=== PATIENT | female | born 1950 | race Caucasian/White ===

== ENCOUNTER 2019-02-01 12:37 | Emergency (ER) | payer BC, OTHER ==
--- NOTE | 2019-02-01 12:50 | PDOC ---
History of Present Illness - General Chief Complaint: Pain Stated Complaint: TONGUE, MOUTH AREA "TENDER" Time Seen by Provider: 02/01/19 12:46 History Source: Patient Exam Limitations: No Limitations - History of Present Illness Initial Comments: 02/01/19 12:48 68 y/o female with two complaints, tongue sore for a few days, using OTC medications without relief. No fever or chills. Also has a pimple in groin area that wants to be looked at. Slightly painful. Has had for a long time. Has appointment with Clinical Reviewer next week. 02/01/19 13:14 Past History - Past Medical History Allergies/Adverse Reactions: Allergies Allergy/AdvReac Type Severity Reaction Status Date / Time escitalopram [From Lexapro] Allergy Verified 02/01/19 12:39 Penicillins Allergy Verified 02/01/19 12:39 Home Medications: Ambulatory Orders NK [No Known Home Medication] 02/01/19 COPD: No Psychiatric Problems: Yes (depression, anxiety, bipoolar, ocd) - Suicide/Smoking/Psychosocial Hx Smoking History: Never smoked Information on smoking cessation initiated: No Hx Alcohol Use: No Review of Systems - Review of Systems Able to Perform ROS?: Yes Is the patient limited Kinyarwanda proficient: No Constitutional: No: Chills, Fever HEENTM: Yes: Mouth Pain. No: Throat Pain, Throat Swelling Respiratory: No: Cough, Shortness of Breath ABD/GI: No: Nausea, Vomiting Integumentary: No: Bruising All Other Systems: Reviewed and Negative *Physical Exam - Vital Signs Last Vital Signs Temp Pulse Resp BP Pulse Ox 97.8 F 87 18 138/65 99 02/01/19 12:37 02/01/19 12:37 02/01/19 12:37 02/01/19 12:37 02/01/19 12:37 - Physical Exam General Appearance: Yes: Nourished, Appropriately Dressed. No: Apparent Distress HEENT: positive: EOMI, HESHAM, Normal ENT Inspection, Normal Voice, Symmetrical, Pharynx Normal. negative: Tonsillar Erythema, Nasal Congestion (no swelling or redness or tongue noted, no aphthous ulcers noted), Rhinorrhea, Sinus Tenderness Neck: positive: Trachea midline, Normal Thyroid, Supple. negative: Tender, Rigid, Carotid bruit Respiratory/Chest: positive: Lungs Clear, Normal Breath Sounds. negative: Chest Tender Cardiovascular: positive: Regular Rhythm, Regular Rate, S1, S2. negative: Edema Vascular Pulses: Femoral (R): 4+, Femoral (L): 4+, Carotid (R): 4+, Carotid (L) : 4+, Dorsalis-Pedis (R): 4+, Doralis-Pedis (L): 4+ Gastrointestinal/Abdominal: positive: Normal Bowel Sounds, Flat, Soft. negative : Tender Lymphatic: negative: Adenopathy, Tenderness, Other Extremity: positive: Normal Capillary Refill, Normal Inspection, Normal Range of Motion Integumentary: positive: Normal Color, Dry, Warm, Other (small raised lesion to left groin area, no redness, fluctuance, or tenderness noted) Neurologic: positive: cylinder steamer II-XII NML intact, Fully Oriented, Alert, Normal Mood/ Affect, Normal Response, Motor Strength 5/ ED Treatment Course - ADDITIONAL ORDERS Additional order review: 02/01/19 13:12 Patient will need follow up with Clinical Reviewer for skin tag removal Salt water gargles for tongue pain If worsen return to ER *DC/Admit/Observation/Transfer Diagnosis at time of Disposition: Tongue pain, Skin tag - Discharge Dispostion Disposition: HOME Condition at time of disposition: Stable Decision to Admit order: No - Referrals - Patient Instructions Printed Discharge Instructions: LENY Lizarraga for Mouth Pain Additional Instructions: Fluids, rest Tylenol Follow up with Clinical Reviewer If worsen return to ER - Post Discharge Activity
[2019-02-01 12:55] VITALS: BP 138/65; PULSE 87; TEMP 97.8; BMI 30.2
== END 2019-02-01 13:25 | disposition home or self-care (01) ==
LOC: FER 12:37
DX: K14.6 Glossodynia (principal); D23.9 Other benign neoplasm of skin, unspecified
CPT/HCPCS: 99283-25

== ENCOUNTER 2020-04-09 09:43 | Emergency (ER) | payer BC, OTHER ==
--- OUTSIDE RECORDS SUMMARY | 2020-04-09 10:05 | XMS ---
:1950 [facility] Providers Name Role Phone KENDAL MURRELL MD Unavailable Unavailable Connie MURRELL MD Unavailable Unavailable Connie MURRELL MD Unavailable Unavailable QUIROZ Unavailable Unavailable POMPA-ARIA Unavailable Unavailable HHCCC Unavailable Unavailable MD RUFINA Unavailable Unavailable MD SKIP Unavailable Unavailable NICHOLAS LAWRENCE Unavailable Unavailable CANONICO Unavailable Unavailable MD MORAIMA Unavailable Unavailable Re-disclosure Warning The records that you are about to access may contain information from federally- assisted alcohol or drug abuse programs. If such information is present, then the following federally mandated warning applies: This information has been disclosed to you from records protected by federal confidentiality rules (42 CFR part 2). The federal rules prohibit you from making any further disclosure of this information unless further disclosure is expressly permitted by the written consent of the person to whom it pertains or as otherwise permitted by 42 CFR part 2. A general authorization for the release of medical or other information is NOT sufficient for this purpose. The Federal rules restrict any use of the information to criminally investigate or prosecute any alcohol or drug abuse patient.The records that you are about to access may contain highly sensitive health information, the redisclosure of which is protected by Article 27-F of the [facility] Public Health law. If you continue you may haveaccess to information: Regarding HIV / AIDS; Provided by facilities licensed or operated by the [facility] Office of Mental Health; or Provided by the [facility] Office for People With Developmental Disabilities. If such information is present, then the following [facility] mandated warning applies: This information has been disclosed to you from confidential records which are protected by state law. State law prohibits you from making any further disclosure of this information without the specific written consent of the person to whom it pertains, or as otherwise permitted by law. Any unauthorized further disclosure in violation of state law may result in a fine or residential sentence or both. A general authorization for the release of medical or other information is NOT sufficient authorization for further disclosure. Encounters Encounter Providers Location Date Indications Data Source(s ) Outpatient Attender: [id number] 04/04/2020 [facility] ([facility] 05:37:21 PM [facility] EDT [facility]) Patient admitted. Outpatient Attender: [facility] 03/31/2020 11:49:00 AM [facility]: [facility] 03/29/2020 09:13:00 PM [place] ALMARAZAdmitter: VALDEZ EDT - 04/07/2020 [facility] 02:55:00 PM EDT Patient discharged. Outpatient Attender: [facility] 03/26/2020 11:00:00 [place] ALMARAZAdmitter: TRACEE EDT - 03/28/2020 [facility] 09:13:00 PM EDT Patient discharged. Inpatient Attender: MOISÉS [facility] 02/19/2020 05:17:00 [place] MENSAHOVAAttender: KENDAL EDT - [facility]:[address] [facility] Patient discharged. Outpatient Attender: [facility] 02/19/2020 02:29:00 [place] ALMARAZAdmitter: LUANN PM EDT - 02/19/2020 [facility] 05:25:00 PM EDT Patient discharged. Outpatient Attender: [facility] 01/31/2020 04:59:00 [place] ALMARAZAdmitter: VALDEZ EDT - 02/19/2020 [facility] 02:28:00 PM EDT Patient discharged. Outpatient Attender: [id number] [facility] 01/30/2020 12:46:35 [facility] Patient [facility]. Outpatient Attender: [id number] [facility] 09/18/2019 05:48:24 [facility] Patient admitted. Medications Medication Brand Start Product Dose Route Administrative Pharmacy St atus Indications Reaction Description Data Name Date Form Instructions Instructions Source(s) quetiapine SEROqu ORAL complet SEROque l - [facility] 25 MG Oral 2019 Table ed 25 MG ORAL [facility] 25 MG 12:00: [facility] [Seroquel[facility] ORAL 00 AM Tablet EDT Clonazepam KlonoP ORAL complet KlonoPI N - [facility] 0.5 MG Oral IN 2019 Table [facility] 0.5 MG ORAL [facility] 0[facility]5 [facility] 12:00[facility] [Klonopin[facility] ORAL 00 AM Tablet EDT Fluvoxamine fluvox ORAL complet fluvox aMINE [facility] 100 aMINE 2019 Table ed Maleate - [facility] MG Oral Maleat 12:00: t 100 MG ORAL H ospital Tablet e - 00 AM Tablet 100 MG EDT ORAL Tablet gabapentin Gabape ORAL complet Gabapen tin - [facility] 100 MG Oral ntin - 2019 Capsu ed 100 MG ORA L [facility] Capsule 100 MG 12:00: le Capsule Hospi sandra ORAL 00 AM Capsul EDT [facility] [place] [facility] ORAL complet [place] [facility] Carbonate m 2019 Capsu ed Carbonate - Vi ncents 150 MG Oral Carbon 12:00: le 150 MG OR AL Hospital Capsule ate - 00 AM Capsule 150 MG EDT ORAL Capsul e quetiapine SEROqu ORAL complet S[facility]que l - [facility] 50 MG Oral 2019 Table ed 50 MG ORAL [facility] Tablet 50 MG 12:00: [facility] [Seroquel] ORAL 00 AM Tablet EDT Insurance Providers Payer name Policy type Policy ID Covered Covered republican's Policy P floresita / Coverage republican ID relationship to Velez Inf ormation type velez MEDICAID [id number] SP [id number] BLUE CROSS [id number] SP [id number] SENIOR PLAN 82 SELF PAY 0000 Self 0000 MEDICAID OP [id number] Self [id number] MDM EMPIRE [id number] Self [id number] B/C 82 SELF PAY 0000 Self 0000 MEDICAID OP [id number] Self [id number] SELF PAY 0000 Self 0000 MEDICAID INP [id number] Self [id number] J PSYCH MDM EMPIRE [id number] Self [id number] B/C 82 MEDICAID OP [id number] Self [id number] SELF PAY [id number] Self [id number] MEDICAID OP [id number] Self [id number] Vital Signs ID Date Data Source UNK Name Value Range Interpretation Code Description Data Source(s) Diastolic blood 86 mmHg 86 mmHg [facility] Systolic blood 142 mmHg 142 mmHg [facility] Respiratory rate 18 bpm 18 bpm [facility] Heart rate 86 bpm 86 bpm [facility] Body temperature 97.4 Fahrenheit 97.4 Fahrenhei t [facility] Diastolic blood 60 mmHg 60 mmHg [facility] Systolic blood 101 mmHg 101 mmHg [facility] Respiratory rate 18 bpm 18 bpm [facility] Heart rate 88 bpm 88 bpm [facility] Body temperature 96.9 Fahrenheit 96.9 Fahrenh t [facility] Diastolic blood 72 mmHg 72 mmHg [facility] Systolic blood 118 mmHg 118 mmHg [facility] Heart rate 80 bpm 80 bpm [facility] Diastolic blood 78 mmHg 78 mmHg [facility] Systolic blood 134 mmHg 134 mmHg [facility] Respiratory rate 18 bpm 18 bpm [facility] Heart rate 87 bpm 87 bpm [facility] Body temperature 97.3 Fahrenheit 97.3 Fahrenh t [facility] Diastolic blood 70 mmHg 70 mmHg [facility] Systolic blood 101 mmHg 101 mmHg [facility] Respiratory rate 18 bpm 18 bpm [facility] Heart rate 86 bpm 86 bpm [facility] Body temperature 97.7 Fahrenheit 97.7 Fahrenhei t [facility] Diastolic blood 79 mmHg 79 mmHg [facility] Systolic blood 134 mmHg 134 mmHg [facility] Heart rate 84 bpm 84 bpm [facility] Diastolic blood 84 mmHg 84 mmHg [facility] Systolic blood 132 mmHg 132 mmHg [facility] Respiratory rate 18 bpm 18 bpm [facility] Heart rate 82 bpm 82 bpm [facility] Body temperature 98.3 Fahrenheit 98.3 Fahrenhei t [facility] Diastolic blood 79 mmHg 79 mmHg [facility] Systolic blood 153 mmHg 153 mmHg [facility] Respiratory rate 18 bpm 18 bpm [facility] Heart rate 83 bpm 83 bpm [facility] Body temperature 97.3 Fahrenheit 97.3 Fahrenhei t [facility] Diastolic blood 79 mmHg 79 mmHg [facility] Systolic blood 153 mmHg 153 mmHg [facility] Respiratory rate 18 bpm 18 bpm [facility] Heart rate 83 bpm 83 bpm [facility] Body temperature 97.3 Fahrenheit 97.3 Fahrenhei t [facility] Diastolic blood 79 mmHg 79 mmHg [facility] Systolic blood 122 mmHg 122 mmHg [facility] Heart rate 80 bpm 80 bpm [facility] Diastolic blood 80 mmHg 80 mmHg [facility] Systolic blood 133 mmHg 133 mmHg [facility] Respiratory rate 18 bpm 18 bpm [facility] Heart rate 80 bpm 80 bpm [facility] Body temperature 98.4 Fahrenheit 98.4 Fahrenhei t [facility] Diastolic blood 66 mmHg 66 mmHg [facility] Systolic blood 115 mmHg 115 mmHg [facility] Respiratory rate 18 bpm 18 bpm [facility] Heart rate 79 bpm 79 bpm [facility] Body temperature 98 Fahrenheit 98 Fahrenheit [facility] Diastolic blood 79 mmHg 79 mmHg [facility] Systolic blood 122 mmHg 122 mmHg [facility] Respiratory rate 18 bpm 18 bpm [facility] Heart rate 80 bpm 80 bpm [facility] Body temperature 97.8 Fahrenheit 97.8 Fahrenhei t [facility] Diastolic blood 76 mmHg 76 mmHg [facility] Systolic blood 123 mmHg 123 mmHg [facility] Respiratory rate 18 bpm 18 bpm [facility] Heart rate 76 bpm 76 bpm [facility] Body temperature 97.8 Fahrenheit 97.8 Fahrenhei t [facility] Diastolic blood 74 mmHg 74 mmHg [facility] Systolic blood 123 mmHg 123 mmHg [facility] Respiratory rate 18 bpm 18 bpm [facility] Heart rate 92 bpm 92 bpm [facility] Body temperature 97.1 Fahrenheit 97.1 Fahrenhei t [facility] Respiratory rate 18 bpm 18 bpm [facility] Body temperature 97.2 Fahrenheit 97.2 Fahrenhei t [facility] Diastolic blood 80 mmHg 80 mmHg [facility] Systolic blood 131 mmHg 131 mmHg [facility] Heart rate 84 bpm 84 bpm [facility] Diastolic blood 77 mmHg 77 mmHg [facility] Systolic blood 123 mmHg 123 mmHg [facility] Respiratory rate 18 bpm 18 bpm [facility] Heart rate 78 bpm 78 bpm [facility] Body temperature 97.9 Fahrenheit 97.9 Fahrenhei t [facility] Body weight 153 lbs 153 lbs [facility] Body temperature 96.8 Fahrenheit 96.8 Fahrenhei t [facility] Diastolic blood 77 mmHg 77 mmHg [facility] Systolic blood 116 mmHg 116 mmHg [facility] Respiratory rate 18 bpm 18 bpm [facility] Heart rate 74 bpm 74 bpm [facility] Diastolic blood 69 mmHg 69 mmHg [facility] Systolic blood 119 mmHg 119 mmHg [facility] Respiratory rate 18 bpm 18 bpm [facility] Heart rate 80 bpm 80 bpm [facility] Body temperature 97.5 Fahrenheit 97.5 Fahrenhei t [facility] Diastolic blood 71 mmHg 71 mmHg [facility] Systolic blood 122 mmHg 122 mmHg [facility] Respiratory rate 18 bpm 18 bpm [facility] Heart rate 81 bpm 81 bpm [facility] Body temperature 97.5 Fahrenheit 97.5 Fahrenhei t [facility] Diastolic blood 81 mmHg 81 mmHg [facility] Systolic blood 127 mmHg 127 mmHg [facility] Respiratory rate 18 bpm 18 bpm [facility] Heart rate 89 bpm 89 bpm [facility] Body temperature 97.2 Fahrenheit 97.2 Fahrenhei t [facility] Diastolic blood 83 mmHg 83 mmHg [facility] Systolic blood 145 mmHg 145 mmHg [facility] Respiratory rate 18 bpm 18 bpm [facility] Heart rate 82 bpm 82 bpm [facility] Body temperature 97.0 Fahrenheit 97.0 Fahrenhei t [facility] Respiratory rate 18 bpm 18 bpm [facility] Heart rate 92 bpm 92 bpm [facility] Body temperature 97 Fahrenheit 97 Fahrenheit [facility] Diastolic blood 74 mmHg 74 mmHg [facility] Systolic blood 119 mmHg 119 mmHg [facility] Diastolic blood 83 mmHg 83 mmHg [facility] Systolic blood 132 mmHg 132 mmHg [facility] Heart rate 81 bpm 81 bpm [facility] Diastolic blood 80 mmHg 80 mmHg [facility] Systolic blood 149 mmHg 149 mmHg [facility] Respiratory rate 20 bpm 20 bpm [facility] Heart rate 74 bpm 74 bpm [facility] Body temperature 97.7 Fahrenheit 97.7 Fahrenhei t [facility] Diastolic blood 75 mmHg 75 mmHg [facility] Systolic blood 125 mmHg 125 mmHg [facility] Respiratory rate 18 bpm 18 bpm [facility] Heart rate 82 bpm 82 bpm [facility] Body temperature 96.9 Fahrenheit 96.9 Fahrenhei t [facility] Diastolic blood 79 mmHg 79 mmHg [facility] Systolic blood 122 mmHg 122 mmHg [facility] Respiratory rate 18 bpm 18 bpm [facility] Heart rate 80 bpm 80 bpm [facility] Body temperature 98.3 Fahrenheit 98.3 Fahrenhei t [facility] Diastolic blood 73 mmHg 73 mmHg [facility] Systolic blood 127 mmHg 127 mmHg [facility] Respiratory rate 18 bpm 18 bpm [facility] Heart rate 83 bpm 83 bpm [facility] Body temperature 98.1 Fahrenheit 98.1 Fahrenhei t [facility] Body weight 156 lbs 156 lbs [facility] Diastolic blood 65 mmHg 65 mmHg [facility] Systolic blood 123 mmHg 123 mmHg [facility] Respiratory rate 18 bpm 18 bpm [facility] Heart rate 78 bpm 78 bpm [facility] Body temperature 98.4 Fahrenheit 98.4 Fahrenhei t [facility] Diastolic blood 89 mmHg 89 mmHg [facility] Systolic blood 139 mmHg 139 mmHg [facility] Heart rate 97 bpm 97 bpm [facility] Diastolic blood 85 mmHg 85 mmHg [facility] Systolic blood 153 mmHg 153 mmHg [facility] Respiratory rate 20 bpm 20 bpm [facility] Heart rate 91 bpm 91 bpm [facility] Body temperature 97.6 Fahrenheit 97.6 Fahrenhei t [facility] Diastolic blood 67 mmHg 67 mmHg [facility] Systolic blood 129 mmHg 129 mmHg [facility] Respiratory rate 18 bpm 18 bpm [facility] Heart rate 77 bpm 77 bpm [facility] Body temperature 96.5 Fahrenheit 96.5 Fahrenhei t [facility] Respiratory rate 18 bpm 18 bpm [facility] Body temperature 97.3 Fahrenheit 97.3 Fahrenhei t [facility] Diastolic blood 76 mmHg 76 mmHg [facility] Systolic blood 122 mmHg 122 mmHg [facility] Heart rate 82 bpm 82 bpm [facility] Diastolic blood 66 mmHg 66 mmHg [facility] Systolic blood 100 mmHg 100 mmHg [facility] Respiratory rate 18 bpm 18 bpm [facility] Heart rate 88 bpm 88 bpm [facility] Body temperature 98.0 Fahrenheit 98.0 Fahrenhei t [facility] Diastolic blood 76 mmHg 76 mmHg [facility] Systolic blood 127 mmHg 127 mmHg [facility] Respiratory rate 19 bpm 19 bpm [facility] Heart rate 92 bpm 92 bpm [facility] Body temperature 97.3 Fahrenheit 97.3 Fahrenhei t [facility] Diastolic blood 81 mmHg 81 mmHg [facility] Systolic blood 133 mmHg 133 mmHg [facility] Respiratory rate 19 bpm 19 bpm [facility] Heart rate 83 bpm 83 bpm [facility] Body temperature 97.3 Fahrenheit 97.3 Fahrenhei t [facility] Diastolic blood 74 mmHg 74 mmHg [facility] Systolic blood 128 mmHg 128 mmHg [facility] Respiratory rate 18 bpm 18 bpm [facility] Heart rate 82 bpm 82 bpm [facility] Body temperature 96.9 Fahrenheit 96.9 Fahrenhei t [facility] Diastolic blood 88 mmHg 88 mmHg [facility] Systolic blood 130 mmHg 130 mmHg [facility] Respiratory rate 18 bpm 18 bpm [facility] Heart rate 96 bpm 96 bpm [facility] Body temperature 97 Fahrenheit 97 Fahrenheit [facility] Diastolic blood 83 mmHg 83 mmHg [facility] Systolic blood 126 mmHg 126 mmHg [facility] Respiratory rate 18 bpm 18 bpm [facility] Heart rate 82 bpm 82 bpm [facility] Body temperature 97 Fahrenheit 97 Fahrenheit [facility] Diastolic blood 72 mmHg 72 mmHg [facility] Systolic blood 112 mmHg 112 mmHg [facility] Respiratory rate 18 bpm 18 bpm [facility] Heart rate 81 bpm 81 bpm [facility] Body temperature 96.0 Fahrenheit 96.0 Fahrenhei t [facility] Diastolic blood 78 mmHg 78 mmHg [facility] Systolic blood 127 mmHg 127 mmHg [facility] Respiratory rate 18 bpm 18 bpm [facility] Heart rate 88 bpm 88 bpm [facility] Body temperature 97.4 Fahrenheit 97.4 Fahrenhei t [facility] Diastolic blood 87 mmHg 87 mmHg [facility] Systolic blood 121 mmHg 121 mmHg [facility] Respiratory rate 20 bpm 20 bpm [facility] Heart rate 87 bpm 87 bpm [facility] Body temperature 97.3 Fahrenheit 97.3 Fahrenhei t [facility] Respiratory rate 18 bpm 18 bpm [facility] Body temperature 97.2 Fahrenheit 97.2 Fahrenhei t [facility] Diastolic blood 71 mmHg 71 mmHg [facility] Systolic blood 107 mmHg 107 mmHg [facility] Heart rate 85 bpm 85 bpm [facility] Body weight 154 lbs 154 lbs [facility] Diastolic blood 80 mmHg 80 mmHg [facility] Systolic blood 145 mmHg 145 mmHg [facility] Respiratory rate 18 bpm 18 bpm [facility] Heart rate 84 bpm 84 bpm [facility] Body temperature 97.3 Fahrenheit 97.3 Fahrenhei t [facility] Diastolic blood 80 mmHg 80 mmHg [facility] Systolic blood 145 mmHg 145 mmHg [facility] Respiratory rate 18 bpm 18 bpm [facility] Heart rate 84 bpm 84 bpm [facility] Body temperature 97.3 Fahrenheit 97.3 Fahrenhei t [facility] Diastolic blood 75 mmHg 75 mmHg [facility] Systolic blood 114 mmHg 114 mmHg [facility] Heart rate 94 bpm 94 bpm [facility] Diastolic blood 85 mmHg 85 mmHg [facility] Systolic blood 136 mmHg 136 mmHg [facility] Respiratory rate 22 bpm 22 bpm [facility] Heart rate 87 bpm 87 bpm [facility] Body temperature 97.1 Fahrenheit 97.1 Fahrenhei t [facility] Diastolic blood 80 mmHg 80 mmHg [facility] Systolic blood 114 mmHg 114 mmHg [facility] Respiratory rate 18 bpm 18 bpm [facility] Heart rate 97 bpm 97 bpm [facility] Body temperature 98 Fahrenheit 98 Fahrenheit [facility] Diastolic blood 82 mmHg 82 mmHg [facility] Systolic blood 116 mmHg 116 mmHg [facility] Heart rate 87 bpm 87 bpm [facility] Diastolic blood 75 mmHg 75 mmHg [facility] Systolic blood 125 mmHg 125 mmHg [facility] Respiratory rate 18 bpm 18 bpm [facility] Heart rate 94 bpm 94 bpm [facility] Body temperature 97.1 Fahrenheit 97.1 Fahrenhei t [facility] Diastolic blood 61 mmHg 61 mmHg [facility] Systolic blood 105 mmHg 105 mmHg [facility] Respiratory rate 18 bpm 18 bpm [facility] Heart rate 88 bpm 88 bpm [facility] Body temperature 97.1 Fahrenheit 97.1 Fahrenhei t [facility] Diastolic blood 68 mmHg 68 mmHg [facility] Systolic blood 97 mmHg 97 mmHg [facility] Heart rate 92 bpm 92 bpm [facility] Diastolic blood 82 mmHg 82 mmHg [facility] Systolic blood 124 mmHg 124 mmHg [facility] Respiratory rate 18 bpm 18 bpm [facility] Heart rate 87 bpm 87 bpm [facility] Body temperature 97.3 Fahrenheit 97.3 Fahrenhei t [facility] Diastolic blood 85 mmHg 85 mmHg [facility] Systolic blood 112 mmHg 112 mmHg [facility] Heart rate 91 bpm 91 bpm [facility] Diastolic blood 86 mmHg 86 mmHg [facility] Systolic blood 135 mmHg 135 mmHg [facility] Respiratory rate 18 bpm 18 bpm [facility] Heart rate 74 bpm 74 bpm [facility] Body temperature 97.0 Fahrenheit 97.0 Fahrenhei t [facility] Diastolic blood 84 mmHg 84 mmHg [facility] Systolic blood 122 mmHg 122 mmHg [facility] Respiratory rate 18 bpm 18 bpm [facility] Heart rate 83 bpm 83 bpm [facility] Body temperature 98.6 Fahrenheit 98.6 Fahrenhei t [facility] Diastolic blood 79 mmHg 79 mmHg [facility] Systolic blood 118 mmHg 118 mmHg [facility] Heart rate 91 bpm 91 bpm [facility] Diastolic blood 85 mmHg 85 mmHg [facility] Systolic blood 132 mmHg 132 mmHg [facility] Respiratory rate 18 bpm 18 bpm [facility] Heart rate 82 bpm 82 bpm [facility] Body temperature 97.3 Fahrenheit 97.3 Fahrenhei t [facility] Diastolic blood 77 mmHg 77 mmHg [facility] Systolic blood 96 mmHg 96 mmHg [facility] Respiratory rate 18 bpm 18 bpm [facility] Heart rate 81 bpm 81 bpm [facility] Body temperature 98 Fahrenheit 98 Fahrenheit [facility] Diastolic blood 69 mmHg 69 mmHg [facility] Systolic blood 106 mmHg 106 mmHg [facility] Heart rate 97 bpm 97 bpm [facility] Diastolic blood 83 mmHg 83 mmHg [facility] Systolic blood 134 mmHg 134 mmHg [facility] Respiratory rate 18 bpm 18 bpm [facility] Heart rate 87 bpm 87 bpm [facility] Body temperature 95.0 Fahrenheit 95.0 Fahrenhei t [facility] Diastolic blood 72 mmHg 72 mmHg [facility] Systolic blood 129 mmHg 129 mmHg [facility] Respiratory rate 18 bpm 18 bpm [facility] Heart rate 82 bpm 82 bpm [facility] Body temperature 98.0 Fahrenheit 98.0 Fahrenhei t [facility] Body weight 154 lbs 154 lbs [facility] Diastolic blood 70 mmHg 70 mmHg [facility] Systolic blood 105 mmHg 105 mmHg [facility] Heart rate 105 bpm 105 bpm [facility] Diastolic blood 81 mmHg 81 mmHg [facility] Systolic blood 137 mmHg 137 mmHg [facility] Respiratory rate 17 bpm 17 bpm [facility] Heart rate 85 bpm 85 bpm [facility] Body temperature 97.8 Fahrenheit 97.8 Fahrenhei t [facility] Diastolic blood 84 mmHg 84 mmHg [facility] Systolic blood 121 mmHg 121 mmHg [facility] Respiratory rate 18 bpm 18 bpm [facility] Heart rate 78 bpm 78 bpm [facility] Body temperature 98.7 Fahrenheit 98.7 Fahrenhei t [facility] Diastolic blood 83 mmHg 83 mmHg [facility] Systolic blood 129 mmHg 129 mmHg [facility] Respiratory rate 18 bpm 18 bpm [facility] Heart rate 80 bpm 80 bpm [facility] Body temperature 97.4 Fahrenheit 97.4 Fahrenhei t [facility] Diastolic blood 72 mmHg 72 mmHg [facility] Systolic blood 112 mmHg 112 mmHg [facility] Respiratory rate 18 bpm 18 bpm [facility] Heart rate 89 bpm 89 bpm [facility] Body temperature 97 Fahrenheit 97 Fahrenheit [facility] Diastolic blood 82 mmHg 82 mmHg [facility] Systolic blood 127 mmHg 127 mmHg [facility] Respiratory rate 17 bpm 17 bpm [facility] Heart rate 68 bpm 68 bpm [facility] Body temperature 98.0 Fahrenheit 98.0 Fahrenhei t [facility] Diastolic blood 72 mmHg 72 mmHg [facility] Systolic blood 115 mmHg 115 mmHg [facility] Respiratory rate 17 bpm 17 bpm [facility] Heart rate 88 bpm 88 bpm [facility] Body temperature 97.9 Fahrenheit 97.9 Fahrenhei t [facility] Diastolic blood 62 mmHg 62 mmHg [facility] Systolic blood 88 mmHg 88 mmHg [facility] Heart rate 86 bpm 86 bpm [facility] Diastolic blood 65 mmHg 65 mmHg [facility] Systolic blood 108 mmHg 108 mmHg [facility] Respiratory rate 18 bpm 18 bpm [facility] Heart rate 83 bpm 83 bpm [facility] Body temperature 98.4 Fahrenheit 98.4 Fahrenhei t [facility] Diastolic blood 80 mmHg 80 mmHg [facility] Systolic blood 122 mmHg 122 mmHg [facility] Respiratory rate 18 bpm 18 bpm [facility] Heart rate 78 bpm 78 bpm [facility] Body temperature 97 Fahrenheit 97 Fahrenheit [facility] Diastolic blood 74 mmHg 74 mmHg [facility] Systolic blood 100 mmHg 100 mmHg [facility] Respiratory rate 18 bpm 18 bpm [facility] Heart rate 74 bpm 74 bpm [facility] Body temperature 97.4 Fahrenheit 97.4 Fahrenhei t [facility] Diastolic blood 64 mmHg 64 mmHg [facility] Systolic blood 85 mmHg 85 mmHg [facility] Respiratory rate 18 bpm 18 bpm [facility] Heart rate 90 bpm 90 bpm [facility] Body temperature 97.5 Fahrenheit 97.5 Fahrenhei t [facility] Diastolic blood 72 mmHg 72 mmHg [facility] Systolic blood 109 mmHg 109 mmHg [facility] Respiratory rate 18 bpm 18 bpm [facility] Heart rate 96 bpm 96 bpm [facility] Body temperature 98.1 Fahrenheit 98.1 Fahrenhei t [facility] Diastolic blood 65 mmHg 65 mmHg [facility] Systolic blood 104 mmHg 104 mmHg [facility] Respiratory rate 18 bpm 18 bpm [facility] Heart rate 97 bpm 97 bpm [facility] Body temperature 96.8 Fahrenheit 96.8 Fahrenhei t [facility] Diastolic blood 66 mmHg 66 mmHg [facility] Systolic blood 105 mmHg 105 mmHg [facility] Heart rate 93 bpm 93 bpm [facility] Diastolic blood 90 mmHg 90 mmHg [facility] Systolic blood 142 mmHg 142 mmHg [facility] Respiratory rate 20 bpm 20 bpm [facility] Heart rate 123 bpm 123 bpm [facility] Body weight 146 lbs 146 lbs [facility] Diastolic blood 96 mmHg 96 mmHg [facility] Systolic blood 167 mmHg 167 mmHg [facility] Respiratory rate 20 bpm 20 bpm [facility] Heart rate 92 bpm 92 bpm [facility] Body temperature 98.2 Fahrenheit 98.2 Fahrenhei t [facility] ID Date Data Source [id number] 04/01/2020 09:39:24 AM EDT [facility] Name Value Range Interpretation Code Description Data Source(s) Body weight Measured 153 lb 153 lb [facility] ID Date Data Source [id number] 04/07/2020 02:56:05 PM EDT [facility] Name Value Range Interpretation Code Description Data Source(s) Body weight Measured 153 lb 153 lb [facility] ID Date Data Source [id number] 03/29/2020 09:13:37 PM EDT [facility] Name Value Range Interpretation Code Description Data Source(s) Body weight Measured 153 lb 153 lb [facility] ID Date Data Source [id number] 03/25/2020 11:54:01 PM EDT [facility] Name Value Range Interpretation Code Description Data Source(s) Body weight Measured 153 lb 153 lb [facility] Body weight Measured 156 lb 156 lb [facility] Body weight Measured 154 lb 154 lb [facility] Body weight Measured 154 lb 154 lb [facility] Body weight Measured 146 lb 146 lb [facility] Body weight Measured 125 lb 125 lb [facility] ID Date Data Source [id number] 03/01/2020 09:04:45 AM EDT [facility] Name Value Range Interpretation Code Description Data Source(s) Body weight Measured 154 lb 154 lb [facility] Body weight Measured 125 lb 125 lb [facility] ID Date Data Source [id number] 02/19/2020 02:29:11 PM EDT [facility] Name Value Range Interpretation Code Description Data Source(s) Body weight Measured 125 lb 125 lb [facility]
--- NOTE | 2020-04-09 10:23 | PDOC ---
History of Present Illness - General Chief Complaint: Cold Symptoms Stated Complaint: NOT FEELING WELL Time Seen by Provider: 04/09/20 09:47 - History of Present Illness Initial Comments: 04/09/20 10:18 69 F with h/o bipolar, depression, presenting to ED with dry mouth. Pt states that she has been taking lithium, seroquel, amongst other psychiatric medications. She was admitted to [facility] 1 month ago and has been on these meds since then. No recent changes. However, pt complains that she has had worsening dry mouth, stating her tongue looks "white". Pt also reports nasal congestion. Denies F/C. Endorses intermittent abdominal bloating with occasional diarrhea as well. No N/V. No abdominal pain. Pt scheduled to see her psychiatrist in 3 days. Past History - Medical History Allergies/Adverse Reactions: Allergies Allergy/AdvReac Type Severity Reaction Status Date / Time escitalopram [From Lexapro] Allergy Verified 04/09/20 09:46 Penicillins Allergy Verified 04/09/20 09:46 Home Medications: Ambulatory Orders Fluvoxamine Maleate 100 mg PO DAILY 04/09/20 Gabapentin 200 mg PO BID 04/09/20 Redkey Carbonate [Eskalith -] 150 mg PO HS 04/09/20 Quetiapine Fumarate [Seroquel -] 25 mg PO BID 04/09/20 Quetiapine Fumarate [Seroquel -] 50 mg PO HS 04/09/20 clonazePAM [Klonopin -] 0.5 mg PO BID PRN 04/09/20 COPD: No Psychiatric Problems: Yes (depression, anxiety, bipoolar, ocd) - Reproductive History Is Patient Now?: No - Psycho-Social/Smoking History Smoking History: Never smoked Have you smoked in the past 12 months: No Information on smoking cessation initiated: No - Substance Abuse Hx (Audit-C & DAST Scrn) How often the patient has a drink containing alcohol: Never Score: In Men: 4 or > Positive; In Women: 3 or > Positive: 0 Screen Result (Pos requires Nsg. Audit-10AR): Negative In the last yr the pt used illegal drug/Rx for NonMed reason: No Score: Yes response is considered Positive: 0 Screen Result (Positive result requires Nsg. DAST-10): Negative Review of Systems - Review of Systems Comments:: 04/09/20 10:19 GENERAL/CONSTITUTIONAL: No fever or chills. No weakness. HEAD, EYES, EARS, NOSE AND THROAT: + dry mouth, No change in vision. No ear pain or discharge. No sore throat. CARDIOVASCULAR: No chest pain, no shortness of breath, no loss of consciousness RESPIRATORY: No cough, wheezing, or hemoptysis. GASTROINTESTINAL: + bloating, diarrhea, No nausea, vomiting, or constipation. GENITOURINARY: No dysuria, frequency, or change in urination. MUSCULOSKELETAL: No joint or muscle swelling or pain. No neck or back pain. SKIN: No rash NEUROLOGIC: No vertigo, no change in strength/sensation. ENDOCRINE: No increased thirst. No abnormal weight change. HEMATOLOGIC/LYMPHATIC: No anemia, easy bleeding, or history of blood clots. ALLERGIC/IMMUNOLOGIC: No hives or skin allergy. *Physical Exam - Vital Signs Last Vital Signs Temp Pulse Resp BP Pulse Ox 98.7 F 83 20 145/73 100 04/09/20 09:44 04/09/20 09:44 04/09/20 09:44 04/09/20 09:44 04/09/20 09:44 - Physical Exam 04/09/20 10:20 "GENERAL: Awake, alert, and fully oriented, in no acute distress. HEAD: No signs of trauma EYES: PERRLA, EOMI, sclera anicteric, conjunctiva clear ENT: + dry mucosa, Auricles normal inspection, hearing grossly normal, nares patent, oropharynx clear without exudates NECK: Nontender, no stepoffs, Normal ROM, supple, no lymphadenopathy, JVD, or masses LUNGS: Breath sounds equal, clear to auscultation bilaterally. No wheezes, and no crackles HEART: Regular rate and rhythm, normal S1 and S2, no murmurs, rubs or gallops ABDOMEN: Soft, nontender, normoactive bowel sounds. No guarding, no rebound. No masses EXTREMITIES: Normal range of motion, no edema. No clubbing or cyanosis. No cords, erythema, or tenderness NEUROLOGICAL: Cranial nerves II through XII intact. 5/5 strength and sensation in all extremities, Normal speech, normal gait, normal cerebellar function SKIN: Warm, Dry, normal turgor, no rashes or lesions noted. Medical Decision Making - Medical Decision Making 04/09/20 10:20 69 F with dry mouth. Likely medication side effect. Pt also with abdominal bloating and occasional diarrhea but benign abdominal exam. - Biotene mouth rinse - F/u psych Pt is well appearing, with normal vitals. Clinically stable for DC at this time. I discussed the physical exam findings, ancillary test results and final diagnoses with the patient. I answered all of the patient's questions. The patient was satisfied with the care received and felt comfortable with the discharge plan and treatment plan. The patient agrees to follow up with the primary care physician within 24-72 hours. Discharge - Discharge Information Problems reviewed: Yes Clinical Impression/Diagnosis: Dry mouth, Abdominal bloating, Diarrhea Condition: Stable Disposition: HOME - Follow up/Referral - Patient Discharge Instructions Additional Instructions: Drink plenty of fluids to stay hydrated. Follow up with your psychiatrist on Saturday as scheduled. If you experience abdominal pain, nausea, vomiting, fevers, or any other concerning symptoms, return to the ER immediately. - Post Discharge Activity
[2020-04-09 10:33] VITALS: BP 145/73; PULSE 83; TEMP 98.7; BMI 26.4
== END 2020-04-09 10:33 | disposition home or self-care (01) ==
LOC: FER 09:43
DX: R10.9 Unspecified abdominal pain (principal); R19.7 Diarrhea, unspecified; R68.2 Dry mouth, unspecified
CPT/HCPCS: 99282-25